=== PATIENT | male | born 1995 | race American Indian/Alaskan Native ===

== ENCOUNTER 2020-11-06 03:19 | Emergency (ER) | payer OTHER ==
[2020-11-06 03:44] VITALS: BP 134/81
[2020-11-06] MEDS ORDERED: TETANUS,DIPH,PERTUSS(ACELL) VACCINE 0.5 ML SYRINGE IM ONE (03:44)
[2020-11-06] MEDS ORDERED: IBUPROFEN 600 MG TAB PO ONE (03:44)
[2020-11-06] MEDS ORDERED: HYDROmorphone 1 MG/1 ML INJ ONE (03:58)
[2020-11-06] MEDS ORDERED: HYDROmorphone 1 MG/1 ML INJ IV ONE (03:58)
[2020-11-06] MEDS ORDERED: ONDANSETRON 4 MG/2 ML INJ IV ONE (03:59)
[2020-11-06] MEDS ORDERED: ONDANSETRON 4 MG/2 ML INJ ONE (03:59)
--- NOTE | 2020-11-06 04:01 | Emergency Department Report ---
HPI - General Chief Complaint: Extremity Injury, Upper Time Seen by Provider: 11/06/20 03:49 - HPI HPI: 25-year-old right-handed male with no known past medical history presents after an accidental injury at his job in which the tip of his right index finger was severed by a conveyor belt. 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 There was copious bleeding but he applied pressure. He was able to retrieve the severed tip of his finger and place it on ice. He does not remember his last Tdap. This happened at approximately 3 AM today. He last had some to eat or drink 2 hours ago. There was no injury to any other part of his body. He complains of 10 out of 10 pain in his right index fingertip but otherwise denies any other symptoms or complaints. ED Past Medical Hx - Past Medical History Previous Medical History?: No - Surgical History Past Surgical History?: No - Social History Smoking Status: Never Smoker Substance Use Type: None ED Review of Systems ROS: Stated complaint: LAC RT INDEX FINGER Other details as noted in HPI Constitutional: denies: chills, fever Eyes: denies: eye pain, vision change ENT: denies: throat pain, congestion Respiratory: denies: cough, shortness of breath Cardiovascular: denies: chest pain, palpitations Gastrointestinal: denies: abdominal pain, nausea, vomiting Musculoskeletal: denies: back pain Skin: denies: rash Neurological: denies: headache, weakness, numbness Physical Exam - Physical Exam Vital Signs: Vital Signs 11/06/20 03:30 Temperature 98.4 F Pulse Rate 78 Respiratory 18 Rate Blood Pressure 134/81 O2 Sat by Pulse 100 Oximetry Physical Exam: GENERAL: Well developed and well nourished. No acute distress HEAD: Normocephalic. No obvious signs of trauma. ENT: Moist mucous membranes. EYES: Extraocular movements are intact. Pupils are equal round and reactive to light bilaterally NECK: Supple. Full ROM is intact. Trachea is midline. LUNGS: Nonlabored breathing. Equal chest rise bilaterally. Clear to auscultation bilaterally. CARDIOVASCULAR: Regular rate and rhythm. No murmurs or rubs. VASCULAR: Cap refill < 2 seconds ABDOMEN: Abdomen is soft and nondistended. There is no significant tenderness, guarding or rebound. SKIN: Skin is warm and dry NEURO: Patient is awake, alert, and oriented. radar operator II-XII grossly intact. No focal deficits. Normal motor and sensory exam throughout. Normal speech. MUSCULOSKELETAL: The right index finger is severed just distal to the DIP leaving just a tiny portion of the base of the nailbed. There are otherwise no deformities. No significant tenderness. Normal ROM throughout. ED Course Vital Signs 11/06/20 03:30 Temperature 98.4 F Pulse Rate 78 Respiratory 18 Rate Blood Pressure 134/81 O2 Sat by Pulse 100 Oximetry ED Medical Decision Making - Lab Data Result diagrams: 11/06/20 03:56 11/06/20 03:56 Lab Results 11/06/20 11/06/20 11/06/20 Range/Units 03:56 03:56 03:56 WBC 6.6 (4.5-11.0) K/mm3 RBC 4.77 (3.65-5.03) M/mm3 Hgb 13.1 (11.8-15.2) gm/dl Hct 40.0 (35.5-45.6) % MCV 84 (84-94) fl MCH 28 (28-32) pg MCHC 33 (32-34) % RDW 13.2 (13.2-15.2) % Plt Count 322 (140-440) K/mm3 Lymph % (Auto) 44.2 H (13.4-35.0) % [place] % (Auto) 9.2 H (0.0-7.3) % Eos % (Auto) 5.8 H (0.0-4.3) % Baso % (Auto) 0.9 (0.0-1.8) % Lymph # (Auto) 2.9 (1.2-5.4) K/mm3 [place] # (Auto) 0.6 (0.0-0.8) K/mm3 Eos # (Auto) 0.4 (0.0-0.4) K/mm3 Baso # (Auto) 0.1 (0.0-0.1) K/mm3 Seg Neutrophils % 39.9 L (40.0-70.0) % Seg Neutrophils # 2.6 (1.8-7.7) K/mm3 PT 13.3 (12.2-14.9) Sec. INR 0.96 (0.87-1.13) APTT 34.3 (24.2-36.6) Sec. Sodium 143 (137-145) mmol/L Potassium 3.9 (3.6-5.0) mmol/L Chloride 104.5 (98-107) mmol/L Carbon Dioxide 28 (22-30) mmol/L Anion Gap 14 mmol/L BUN 14 (9-20) mg/dL Creatinine 1.0 (0.8-1.3) mg/dL Estimated GFR > 60 ml/min BUN/Creatinine Ratio 14 % Glucose 95 (75-100) mg/dL Calcium 9.1 (8.4-10.2) mg/dL - Medical Decision Making 25-year-old right-handed male presents after an accidental work-related injury in which the tip of his right distal index finger was severed by a conveyor belt. There are no other injuries to any other part of his body. The severed tip of his finger has been wrapped in saline soaked gauze, placed in a bag, and that bag was placed on ice. Physical examination reveals that the right distal index finger was cleaned severed just at the base of the nailbed. The remainder of his physical exam is within normal limits. We will send full set of labs and obtained an x-ray and plan to transfer the patient to another facility given that we do not have hand surgery or orthopedic surgery on-call. His last food/drink was 2 hours ago. He has been made n.p.o. We will give Dilaudid and Zofran for pain. We will administer Tdap. At 4:15 AM, I spoke over the phone with Dr. Monae of hand surgery at [place]. He states that given where the amputation has occurred they will not be reimplanting the severed portion of the finger but the patient is accepted as a transfer for further care given that we do not have orthopedic surgery or hand surgery here. The accepting doctor is Dr. Benavidez. I discussed with the patient the fact that the hand surgeon says no reimplantation will occur and he expressed understanding and agreement with the transfer nonetheless. His pain is better controlled. Critical care attestation.: If time is entered above; I have spent that time in minutes in the direct care of this critically ill patient, excluding procedure time. 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
[2020-11-06 04:30] LABS: Basophils # (Auto) 0.1 K/mm3 (0.0-0.1); Basophils % (Auto) 0.9 % (0.0-1.8); Eosinophils # (Auto) 0.4 K/mm3 (0.0-0.4); Eosinophils % (Auto) 5.8 % (0.0-4.3); Hemoglobin 13.1 gm/dl (11.8-15.2); Lymphocytes # (Auto) 2.9 K/mm3 (1.2-5.4); Lymphocytes % (Auto) 44.2 % (13.4-35.0); Mean Corpuscular HGB Conc 33 % (32-34); Mean Corpuscular Volume 84 fl (84-94); Monocytes # (Auto) 0.6 K/mm3 (0.0-0.8); Monocytes % (Auto) 9.2 % (0.0-7.3); Platelet Count 322 K/mm3 (140-440); Red Blood Count 4.77 M/mm3 (3.65-5.03); Red Cell Distribution Width 13.2 % (13.2-15.2)
[2020-11-06 04:36] LABS: BUN/Creatinine Ratio 14; Blood Urea Nitrogen 14 mg/dL (9-20); Calcium 9.1 mg/dL (8.4-10.2); Hemolysis Index 1
--- NOTE | 2020-11-06 04:36 | XRay Report ---
RIGHT FINGERS 3 VIEWS INDICATION / CLINICAL INFORMATION: Finger injury - amputated distal right index finge COMPARISON: None available. FINDINGS: BONES / JOINT(S): There is amputation of the distal aspect of the index finger at the level of the pr oximal aspect of the distal phalanx. No significant arthritis. SOFT TISSUES: No significant abnormality. ADDITIONAL FINDINGS: None. Signer Name: Arnulfo Adams MD Signed: 11/06/2020 4:32 AM Workstation Name: [id number]
[2020-11-06 04:51] LABS: INR 0.96 (0.87-1.13)
[2020-11-06 04:52] LABS: Partial Thromboplastin Time 34.3 Sec. (24.2-36.6)
== END 2020-11-06 06:50 | disposition other institution (70) ==
LOC: ED 03:19
DX: S68.620A Partial traumatic transphalangeal amputation of right index finger, initial encounter (principal); X58.XXXA Exposure to other specified factors, initial encounter; Y93.89 Activity, other specified; Y92.89 Other specified places as the place of occurrence of the external cause; Y99.0 Civilian activity done for income or pay
CPT/HCPCS: 36415; 73140; 80048; 85025; 85610; 85730; 90471; 90715; 96374; 96375; 99285; J1170; J2405